=== PATIENT | female | born 1995 | race Caucasian/White ===

== ENCOUNTER 2025-08-27 10:29 | Emergency (ER) | payer OTHER, SELFPAY ==
[2025-08-27 10:30] VITALS: BP 133/86
[2025-08-27 10:33] VITALS: BP 133/86
[2025-08-27] MEDS: BENADRYL 25 MG IV ×2 (10:50→11:15)
[2025-08-27] MEDS: NSS 1000 IV (11:02)
[2025-08-27 11:08] LABS: Hematocrit 39.2 % (37.0-47.0); Hemoglobin 13.8 g/dL (12.0-16.0); Mean Corp Hgb Conc. 35.2 g/dL (33.0-37.0); Mean Corpuscular Volume 85.6 fL (81.0-99.0); Nucleated Red Blood Cells % 0 %; Platelet Count 329 10^3/uL (130-400); Red Cell Dist. Width 12.0 % (11.5-14.5)
[2025-08-27 11:22] LABS: HCG, Serum Qualitative Screen Negative
[2025-08-27 11:29] LABS: Blood Urea Nitrogen 8 mg/dl (7-17); Calcium 10.0 mg/dl (8.4-10.2); Carbon Dioxide 25 mmol/L (22-30); Chloride 106 mmol/L (98-107); Glucose 100 mg/dl (70-99); Potassium 4.2 mmol/L (3.5-5.1); Sodium 136 mmol/L (135-145); eGFR > 60.00
[2025-08-27 12:00] VITALS: BP 122/87
--- NOTE | 2025-08-27 13:21 | ED.GENMED ---
History of Present Illness
General
Chief Complaint: Musculo-Skeletal Complaint
Source: patient and family
Exam Limitations: none
Time Seen by Provider: 08/27/25 10:48
History of Present Illness
History of Present Illness:
Patient had a arteriogram and a venogram done yesterday at [facility]. This was for ongoing headache issues. Overnight she developed some right flank spasms followed by severe left jaw pain and spasm. She has been taking Compazine
for nausea and vomiting that started yesterday. She denies any other acute neurologic symptoms.
Past History
Past History
ED Past Medical History: Other (Migraines)
ED Past Surgical History: Other (Sinus surgery)
Review of Systems
Review of Systems
All Other Systems: Not applicable
Respiratory: Reports no symptoms
Cardiac: Reports no symptoms
Neurological: Denies dizzy, weakness or numbness
Phy Exam
Physical Exam
Physical Exam:
GENERAL: Alert and oriented. Patient with spasms of the left jaw with some displacement secondary to muscle spasm. Very anxious.
EYE: Orbits normal.
NECK: Supple, no significant adenopathy.
ENT: Pharynx without erythema. No drooling or stridor
CARDIAC: Tachycardic and regular no murmur
LUNGS: Clear breath sounds,normal
ABDOMEN: Soft, without focal tenderness or distention
NEUROLOGICAL: Alert and oriented , nonfocal exam
SKIN: Warm and dry, no rash or lesion, no discoloration, skin intact.
MUSCULOSKELETAL: No edema,no deformity.Good color
PSYCH: Normal and appropriate interaction.
Course
Orders/Labs/Results
Orders:
Orders
08/27/25 10:49
IV Insert/Care/Rem.- Treatment PRN
0.9% Sodium Chloride 1000 ml [Nss] 1,000 ml IV BOLUS
Diphenhydramine [Benadryl] 25 mg IV NOW STA
Test Result ONCE
08/27/25 10:58
Basic Metabolic Panel Urgent
Complete Blood Count/With Diff Urgent
HCG, Serum Qualitative Screen Urgent
08/27/25 10:59
Diphenhydramine [Benadryl] 25 mg IV NOW STA
Abnormal Lab Results
08/27/25
10:58
Lymphocytes % 19.9 L %
(20.5-51.1)
Glucose 100 H mg/dl
(70-99)
08/27/25 10:58
08/27/25 10:58
Vital Signs
Initial and Last Documented VS:
Initial Vital Signs
Temp Pulse Resp BP Pulse Ox
98.2 F 115 20 133/86 99
08/27/25 10:30 08/27/25 10:30 08/27/25 10:30 08/27/25 10:30 08/27/25 10:30
Last Documented Vital Signs
Temp Pulse Resp BP Pulse Ox
98.2 F 106 20 133/93 98
08/27/25 10:30 08/27/25 13:31 08/27/25 13:31 08/27/25 13:31 08/27/25 13:26
MDM/Problems Addressed
Differential Diagnosis Includes:
Patient clinically all presented as dystonic reaction. Started Compazine yesterday. Responded very well to Benadryl. Rechecked multiple multiple times and has remained stable. Last recheck a few minutes ago patient was doing well with stable
vital signs. Discussed with patient's neurosurgery team and with neurologist. Official reports are not available from yesterday although the neurosurgical team stated if there was anything significant she would not have been discharged. Neurology
also updated.
*Pulse Oximetry
SaO2: 98
Oxygen Mode of Delivery: Room air
Patient hypoxic: no (99)
*Corporate Analyst Interpretation
Rate: normal
Interpretation: normal
Heart Rate: 94
Rhythm: sinus
*Critical Care Note
Total Time (30-74mins, 75-104mins- exclusive of procedures): Not Applicable
ED Attending Note
-
Portions of this chart may have been created with voice recognition software.� Occasional wrong word or��sound alike� substitutions may have occurred due to the inherent limitations of voice recognition software.
Discharge Plan
Departure
Patient Disposition: Home (Routine Discharge)
Date of Disposition: 08/27/25
Time of Disposition: 13:24
Patient with high blood pressure during this ER visit?: Yes
Discharge Problem:
Dystonic reaction, Likely secondary to Compazine
Instructions: Side effects from medicines in adults - ED (DC), BLOOD PRESSURE
Referrals:
Serafin Dockery DO [Family Provider, Family Practice] - Follow up in 2-3 days
Activity Restrictions/Additional Instructions:
Stop the prochlorperazine
Benadryl as we discussed. I would try 25 mg tablet every 6 hours.
Return with any significant recurrence, or any other concerning symptoms including fever worsening headache focal neurologic symptoms etc.
Follow-up closely with your neurology team and the neurosurgeon
Interventions
Interventions:
*Risk Screen - Suicide Last Done: 08/27/25 10:30
*General Assessment Last Done: 08/27/25 10:30
*Neglect/Abuse Screening Last Done: 08/27/25 10:30
*ED COVID-19 Vaccine History Last Done: 08/27/25 11:00
*ED Influenza Vaccine History Last Done: 08/27/25 11:00
[facility] Risk Assessment Tool Last Done: 08/27/25 10:29
*Nursing Disposition Last Done: 08/27/25 14:11
ED-Musculoskeletal Assessment Last Done: 08/27/25 11:00
Discharge Date and Time
Discharge Date/Time: 08/27/25 14:12
Print Language: SYRIAN
[2025-08-27 13:31] VITALS: BP 133/93
== END 2025-08-27 14:12 | disposition home or self-care (01) ==
LOC: EMR 10:29
PROVIDERS: EMERGENCY PHYSICIAN Emergency Medicine; FAMILY PHYSICIAN Family Medicine Sports Medicine
DX: G24.9 Dystonia, unspecified (principal); R68.84 Jaw pain; Z79.899 Other long term (current) drug therapy
CPT/HCPCS: 96374; 96375; 96361; 99284; 80048; 84703; 85025